=== PATIENT | male | born 1940 | race Caucasian/White ===

== ENCOUNTER 2019-02-25 13:27 | Emergency (ER) | payer OTHER, BC ==
[~2019-02-25] VITALS: Ht 185.4 cm; Wt 136.1 kg
[2019-02-25 13:35] VITALS: Ht 185.4 cm; Wt 136.1 kg
[2019-02-25 16:27] VITALS: BP 119/76
== END 2019-02-25 16:27 | disposition home or self-care (01) ==
LOC: ED 13:27
DX: S82.142A Displaced bicondylar fracture of left tibia, initial encounter for closed fracture (principal); S82.492A Other fracture of shaft of left fibula, initial encounter for closed fracture; S01.01XA Laceration without foreign body of scalp, initial encounter; I10 Essential (primary) hypertension; E11.9 Type 2 diabetes mellitus without complications; E78.00 Pure hypercholesterolemia, unspecified; R51 Headache; W01.0XXA Fall on same level from slipping, tripping and stumbling without subsequent striking against object, initial encounter; Y93.89 Activity, other specified; Y92.89 Other specified places as the place of occurrence of the external cause; Y99.8 Other external cause status
CPT/HCPCS: J2001; Q0092

== ENCOUNTER 2019-03-26 13:07 | Inpatient (IN) | payer OTHER, BC ==
[~2019-03-26] VITALS: Ht 185.4 cm; Wt 128.4 kg
[2019-03-26 13:10] VITALS: Ht 185.4 cm; Wt 128.4 kg
--- NOTE | 2019-03-26 13:35 | NUR ---
PT ARRIVED DIAPERED, BLACK MATERIAL SEEN IN FRONT OF DIAPER BY PENIS. PT W/ EXCORIATION TO GROIN FOLDS. PT'S PENIS W/ WHITE CHEESY MATERIAL. PT ST CATH BY LORETTA ANDREWS W/ IMMEDIATE RETURN TEA-COLORED URINE WHICH PROGRESSED TO A GRAINY BROWN, 1500 CC OF URINE IMMEDIATELY RETURNED. SPECIMEN TO LAB.
--- NOTE | 2019-03-26 13:40 | NUR ---
PT'S SPEECH IS SLURRED BUT PT IS ORIENTED. MSE BY DR. VASQUEZ. PER MD, PT'S MOUTH IS EXTREMELY DRY & MAY BE CONTRIBUTING TOWARDS THE SLURRED SPEECH. PER MEDIC, TRELLIS STAFF REPORT POOR PO INTAKE BY PT SINCE HIS SURGERY. PT ARRIVED W/ DRESSINGS DOWN LT LEG & AROUND LT FOOT BUT WITH NO SPLINT OR KNEE IMMOBILIZER IN PLACE.
--- NOTE | 2019-03-26 13:49 | NUR ---
PATIENT BIBA [facility] FOR GENERALIZED WEAKNESS. WHEN PATIENT ARRIVED TO BEDSIDE, PATIENT WAS LETHARGIC. WAS ABLE TO AROUSE PATIENT WHEN SPOKEN TO WITH A LOUDER VOICE. PATIENT ABLE TO SPEAK BUT SPEECH IS SLURRED. WAS ABLE TO VOLUNTARILY RAISE BOTH ARMS VOLUNTARILY, WITH EQUAL AND STRONG MILL ROLL REWINDER. RIGHT TOE AND LEFT BOTTOM OF FOOT HAS SOME OPEN SKIN TEARS IN DIFFERENT STAGES OF HEALING. PICTURES TAKEN. PATIENT PLACED ON O2 NASAL CANULA. HAS BEEN O2 SAT IN UPPER 80S AND THEN WOULD COME BACK TO MID 90S. HAS BEEN ABLE TO FOLLOW COMMANDS. DR. VASQUEZ AT BEDSIDE PERFORMED MSE
--- NOTE | 2019-03-26 13:58 | NUR ---
PATIENT RESTING AT BEDSIDE IN NAD
[2019-03-26 14:07] LABS: microscopic required? YES; urine erythrocyte 2+ (NEGATIVE)
[2019-03-26 14:08] LABS: BASOPHIL % 0.2 % (0-2); PLATELET COUNT 277 x10^3mcL (130-400); RED CELL DISTRIBUTION WIDTH 16.1 % (11.5-14.5)
--- NOTE | 2019-03-26 14:13 | NUR ---
XRAY AT BEDSIDE
[2019-03-26 14:18] LABS: AMPHETAMINE QUAL UR NONE DETECTED (See below)
--- NOTE | 2019-03-26 14:33 | NUR ---
PATIENT RESTING AT BEDSIDE IN NAD
[2019-03-26 14:41] LABS: ALKALINE PHOSPHATASE 82 U/L (46-116); ALT/SGPT 16 U/L (16-63); AST/SGOT 20 U/L (15-37); BILIRUBIN TOTAL 0.8 mg/dL (0.20-1.00); CALCIUM 8.3 mg/dL (8.5-10.1); CARBON DIOXIDE 24.7 mmol/L (21-32); CHLORIDE SERUM 103 mmol/L (98-107); GLUCOSE SERUM 74 mg/dL (74-106); HDL CHOLESTEROL 53 mg/dL (40-60); LIPASE 691 IU/L (73-393); MAGNESIUM 2.7 mg/dL (1.8-2.4); SODIUM SERUM 138 mmol/L (136-145); T4(THYROXINE) 6.1 ug/dL (4.7-13.3); TOTAL PROTEIN, SERUM 6.9 g/dL (6.4-8.2)
[2019-03-26 14:47] LABS: CHOLESTEROL 94 mg/dL (<200); CREATININE SERUM 4.5 mg/dL (0.7-1.3); POTASSIUM SERUM 5.6 mmol/L (3.5-5.1)
[2019-03-26] MEDS ORDERED: LIPI20 PO (14:52)
[2019-03-26] MEDS ORDERED: ACT30 (14:52)
[2019-03-26] MEDS ORDERED: NEU300 PO (14:52)
[2019-03-26] MEDS ORDERED: LOSARTAN POTASS50 M1 PO (14:54)
[2019-03-26] MEDS ORDERED: METFORMIN HYDR500 M1 PO (14:54)
[2019-03-26] MEDS ORDERED: RELION HUMUL100 U/M2 SQ (14:56)
[2019-03-26] MEDS ORDERED: HUMULIN N100 U/1 ML SC (14:56)
--- NOTE | 2019-03-26 15:54 | NUR ---
REPORT OFF TO JULIANA SALAMANCA
[2019-03-26 17:00] VITALS: BP 106/53
--- NOTE | 2019-03-26 17:25 | NUR ---
RECEIVED PT FROM ER, PT ADMIT FOR ACUTE RENAL FAILURE, PT IS A/O X4, VERBAL RESPONSIVE, KEWEENAW, BUT ABLE TO ANSWER ALL QUESTIONS. LUNG SOUND DIM ELEAZAR BASE, DENY ANY SOB, PT IS ON 3L/MIN O2 VIA NC. PO2 92%, PT IS ON TELE 12, A.FIB WITH PVC, DENY ANY CHEST PAIN OR DISCOMFORT, BOWEL SOUND PRESENT ALL 4 QUADRANTS, NO DISTNETION, NO TENDER. PEDAL PULSE PRESENT BOTH FEET, +1 EDEMA LLE. THERE IS SURGICAL INCISION AT LEFT LOWER LEG AND KNEE. SUTURE ARE INTACT, NO BLEEDING, PICTURE IS TAKEND. COVERED WITH DRY DRESSING, THERE IS A BROWN DISCOLORATION TISSUE AT LEFT PLANTAR. ALSO THERE IS BLACK DISCOLRATION TISSUE AT RIGHT BIG TOE. IV AT RIGHT AND LEFT HAND, NO LEAKING, NO INFILRATION. ALL ADLS ASSIST, ALL NEED MET, CALL LIGHT IN REACH, WILL CONTINUE TO MONITOR. ENDORSE ALL INFORMATION TO PRIMARY RN, JULIANA OSBORNE.
--- NOTE | 2019-03-26 18:19 | NUR ---
AAO TO PERSON AND PLACE. TELE # 12 A FIB. NO C/O PAIN. NO SOB. O2 SAT ON 3L NC 92%. IV SITE RIGHT HAND PATENT, CDI. PATIENT'S FAMILY MEMBER AT BEDSIDE, SUPPORTIVE AND CARING. GALLARDO CATH DRAINED 200 ML TEA COLORED URINE. DRESSING TO LEFT LATERAL LEG CDI. SUTURES TO RECENT SURGICAL INCISION ON LEFT LATERAL KNEE AREA APPROXIMATING WOUND, WOUND CDI, NO ERYTHEMA OR DRAINAGE, IT IS HEALING WELL.
--- NOTE | 2019-03-26 19:33 | NUR ---
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
[2019-03-26 20:36] VITALS: BP 125/44
--- NOTE | 2019-03-26 21:13 | NUR ---
DR IRBY MADE AWARE PATIENT IS NEW AFIB,NO MEDS YET,ALSO IS A POST OP SURGERY OF L KNEE,WILL FIND OUT EXACT DATE.
--- NOTE | 2019-03-27 04:55 | NUR ---
IV DINORAH R HAND INTACT,L HAND IV SITE SWOLLEN.ARMBAND WILL APPLY A NEW ONE.
[2019-03-27 05:26] VITALS: BP 132/48
--- NOTE | 2019-03-27 06:09 | NUR ---
PATIENT RESTING COMFORTABLY. STILL AT BEDSIDE,STAYED FOR TONIGHT.L LEG SURGERY INCISION/SUTURE L KNEE.I AND O MEASURED.WILL ENDORSE TO NEXT SHIFT.
[2019-03-27 06:47] LABS: BASOPHIL % 0.3 % (0-2); PLATELET COUNT 229 x10^3mcL (130-400)
[2019-03-27 07:04] LABS: RED CELL DISTRIBUTION WIDTH 16.6 % (11.5-14.5)
[2019-03-27 07:08] LABS: CALCIUM 7.9 mg/dL (8.5-10.1); CARBON DIOXIDE 16.3 mmol/L (21-32); CHLORIDE SERUM 106 mmol/L (98-107); CREATININE SERUM 3.9 mg/dL (0.7-1.3); GLUCOSE SERUM 99 mg/dL (74-106); POTASSIUM SERUM 5.5 mmol/L (3.5-5.1); SODIUM SERUM 139 mmol/L (136-145)
--- NOTE | 2019-03-27 09:10 | NUR ---
REPOSITIONED AND KEPT PATIENT COMFORTABLE. PATIENT STATED HAS NO APPETITE THIS MORNING. ROCEPHIN IV INFUSING AT THIS TIME, NO ADVERSE REACTION NOTED. AM SCHEDULED MEDS GIVEN. PATIENT'S SPOUSE AT BEDSIDE VERY SUPPORTIVE. ULTRASOUND KIDNEY ONGOIND AT BEDSIDE AT THIS TIME.
[2019-03-27 09:12] VITALS: BP 113/78
--- NOTE | 2019-03-27 11:00 | NUR ---
PATIENT PULLED OUT IV FROM RIGHT HAND, NO ERYTHEMA OR SWELLING TO SITE, DRSG APPLIED. NEW IV CATHETER#22 INSERTED TO RFA WITH GOOD BLD RETURNED AND FLUSHED WELL. IVF NS AT 100ML/R CONTINUED. REORIENTED TO PLACE, TIME AND SITUATION. PATIENT NOTED IN AND OUT OF CONFUSION.
[2019-03-27 12:02] VITALS: BP 114/46
--- NOTE | 2019-03-27 17:07 | NUR ---
CONFUSED AND TRYING TO GET OUT OF BED. REORIENTED TO PATIENT. PATIENT BECAME AGITATED. PATIENT'S SPOUSE AT BEDSIDE ASKED FOR MEDICINE TO CALM PATIENT DOWN. AIRCRAFT DELIVERY CHECKER KORY NOTIFIED. ATIVAN 1MG IVP GIVEN PER AIRCRAFT DELIVERY CHECKER'S ORDER.
[2019-03-27 17:15] VITALS: BP 138/55
--- NOTE | 2019-03-27 18:59 | NUR ---
SEEN BY DOCTOR KRAMER.
--- NOTE | 2019-03-27 19:30 | NUR ---
RECEIVED PT FROM DAY SHIFT RN. PT RESTING AROUSABLE TO TACTILE STIMULI. BREATHING EVEN AND UNLABORED ON NC 3L/MIN. TELE #12 AFIB. NO SIGNS OF DISTRESS. IV RIGHT HAND PATENT, INFUSING WELL WITH NO SIGNS OF INFILTRATION NOTED. BLE EDEMA NOTED. LLE COVERED WITH DRESSING, CDI. F/C IN PLACE DARK GERMAN URINE. AT BEDSIDE. CALL BUTTON WITHIN REACH. SAFETY PRECAUTIONS IN PLACE. WILL CONTINUE TO MONITOR.
--- NOTE | 2019-03-27 19:31 | NUR ---
RECEIVED PT FROM DAY SHIFT RN. PT RESTING AROUSABLE TO TACTILE STIMULI. BREATHING EVEN AND UNLABORED ON NC 3L/MIN. TELE #12 AFIB. NO SIGNS OF DISTRESS. IV RIGHT HAND PATENT, INFUSING WELL WITH NO SIGNS OF INFILTRATION NOTED. BLE EDEMA NOTED. LLE COVERED WITH DRESSING, CDI. F/C IN PLACE DARK RED URINE. AT BEDSIDE. CALL BUTTON WITHIN REACH. SAFETY PRECAUTIONS IN PLACE. WILL CONTINUE TO MONITOR.
[2019-03-27 20:30] VITALS: BP 129/40
--- NOTE | 2019-03-27 20:30 | NUR ---
PT HR GOES LOW 38 THEN TO HR 71 ON AND OFF. VS STABLE. DR IRBY MADE AWARE AND AT BEDSIDE TO ASSESS PT.
[2019-03-27 22:02] LABS: CARBON DIOXIDE 21.3 mmol/L (21-32); CHLORIDE SERUM 109 mmol/L (98-107); CREATININE SERUM 3.3 mg/dL (0.7-1.3); GLUCOSE SERUM 147 mg/dL (74-106); SODIUM SERUM 140 mmol/L (136-145)
[2019-03-27 22:04] LABS: POTASSIUM SERUM 5.9 mmol/L (3.5-5.1)
--- NOTE | 2019-03-27 22:10 | NUR ---
DR SUREKHA WINN FOR LAB RESULTS OF K 5.9 AND BUN 109.
--- NOTE | 2019-03-28 00:44 | NUR ---
PT RESTING. NC 3L/MIN NO SOB NOTED. IV PATENT, INFUSING WELL. PT HR 92. NO SIGNS OF DISTRESS NOTED. F/C CONTINUE TO DRAIN DARK RED COLOR URINE. SAFETY PRECAUTIONS IN PLACE. WILL MONITOR.
--- NOTE | 2019-03-28 04:03 | NUR ---
ROUNDS MADE. PT RESTING. BREATHING EVEN AND UNLABORED WITH NO SIGNS OF DISTRESS. CALL BUTTON WITHIN REACH. SAFETY PRECAUTIONS IN PLACE. AT BEDSIDE. WILL CONTINUE TO MONITOR.
[2019-03-28 05:02] VITALS: BP 136/60
--- NOTE | 2019-03-28 05:13 | NUR ---
PT SLEPT MOST OF THE NIGHT. PT NC 2L/MIN 95% NO SOB NOTED. PT HR ABOVE 80. NO SIGNS OF DISTRESS NOTED. PT IS MORE AWAKE THIS AM, ALERT AND ORIENTED TO SELF. SLOW/SLURRED SPEECH. F/C CONT. TO DRAIN DARK RED COLOR URINE. IV PATENT, INFUSING WELL. NO SIGNS OF DISTRESS NOTED. CALL BUTTON WITHIN REACH. SAFETY PRECAUTIONS IN PLACE. AT BEDSIDE. WILL CONTINUE TO MONITOR AND ENDORSE CARE TO DAY SHIFT RN.
[2019-03-28 06:27] VITALS: BP 136/60
--- NOTE | 2019-03-28 07:23 | NUR ---
PT IN NO SIGNS OF DISTRESS NOTED. ENDORSED CARE TO DAY SHIFT RN, ALL QUESTIONS ADDRESSED.
--- NOTE | 2019-03-28 07:30 | NUR ---
RECEIVED PT IN NO ACUTE DISTRESS. SLEEPING BUT AROUSABLE. BREATHING EVEN AND UNLABORED ON 2L NC. HOB ELEVATED. IVF INFUSING TO R HAND, NO REDNESS OR SWELLING NOTED. 2 ISLAND DRESSINGS TO LLE, C/D/I. PURPLE-GREEN DISCOLORATION TO LLE, INDUSTRIAL ACCOUNTANT. SCABS NOTED THROUGHOUT BLE, INDUSTRIAL ACCOUNTANT. LEFT 4TH TOE AMPUTATED. GALLARDO CATHETER DRAINING TEA COLORED URINE WITH BLOOD. FALL PRECAUTIONS IN PLACE. BED ALARM ON. BED IN LOW POSITION, CALL LIGHT WITHIN REACH. WILL CONTINUE TO MONITOR.
--- NOTE | 2019-03-28 08:05 | NUR ---
PT HAD SMALL SOFT BM, CLEANED AND REPOSITIONED FOR COMFORT. ERYTHEMA TO PERINEAL AREA, Z-GUARD APPLIED. HOB ELEVATED. CALL LIGHT WITHIN REACH. WILL CONTINUE TO MONITOR.
[2019-03-28 08:22] VITALS: BP 146/57
--- NOTE | 2019-03-28 11:15 | NUR ---
PT NOTED WITH NON-BLANCHABLE ERYTHEMA TO SACRUM. Z-GUARD, OPTIFOAM APPLIED. PT PLACED ON LOW AIR LOSS MATTRESS. PICTURES TAKEN AND PLACED IN ALEXIS MONK NP AWARE. WILL CONTINUE TO MONITOR.
[2019-03-28 11:55] VITALS: BP 136/69
--- NOTE | 2019-03-28 15:01 | NUR ---
WOUND CARE EVALUATION NOTE: REASON FOR EVALUATION: PRESSURE ULCER WOUND SKIN ASSESSMENT DONE WITH PRIMARY RN ON THIS 78 Y/O MALE WITH CHANGE OF SKIN CONDITION. HX OF LEFT TIBIA FX WITH ORIF. F/C IN PATENT WITH MODERATE AMOUNT OF YELLOW URINE OUTPUT. SKIN WARM AND DRY, BLE NO HAIR GROWTH. DORSAL PEDAL PULSES PRESENT AND NORMAL. PLAN OF CARE DISCUSSED WITH PRIMARY RN. 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 -LEFT 1ST METATARSAL PLANTAR AREA DIABETIC ULCER 3X3CM DEPTH UTD, DRY STABLE BROWN ESCHAR -RIGHT HALLUX AREA DIABETIC ULCER 2X2CM DEPTH UTD, DRY STABLE BLACK ESCHAR RECOMMENDATIONS: -LEFT LEG SURGICAL WOUND KEEP AREA DRY AND CLEAN, COVER WITH DRY DRESSING QD -PAINT LEFT 1ST METATARSAL PLANTAR AREA AND RIGHT HALLUX AREA WITH BETADINE SOLUTION BID AND LEAVE IT OPEN TO AIR -CLEANSE SACRALCOCCYX EXTENDED TO LEFT INNER BUTTOCK WITH SOAP AND WATER, PAT DRY, COVER WITH OPTIFOAM DRESSING QD AND PRN IF SOILING -HEEL PROTECTORS BILATERAL HEELS -TURN AND REPOSITION PATIENT Q 2H -ASSESS AND MONITOR SKIN CONDITION DURING POSITION CHANGE -OFFLOAD BILATERAL HEELS BY PLACING PILLOWS UNDER CALVES AT ALL TIMES, UNLESS OTHERWISE CONTRAINDICATED -PRESSURE REDISTRIBUTION SURFACE THERAPY -KEEP SKIN CLEAN AND DRY AT ALL TIMES ALL ABOVE RECOMMENDATIONS DISCUSSED WITH PRIMARY RN WILL FOLLOW UP Q7-10 DAYS, PLEASE CONTACT WOUND CARE NURSE FOR ANY QUESTIONS AND CHANGE OF SKIN CONDITION
[2019-03-28 15:52] LABS: CALCIUM 8.5 mg/dL (8.5-10.1); CARBON DIOXIDE 18.9 mmol/L (21-32); CHLORIDE SERUM 108 mmol/L (98-107); CREATININE SERUM 2.6 mg/dL (0.7-1.3); GLUCOSE SERUM 197 mg/dL (74-106); POTASSIUM SERUM 5.3 mmol/L (3.5-5.1); SODIUM SERUM 141 mmol/L (136-145)
--- NOTE | 2019-03-28 16:33 | NUR ---
PHYSICAL THERAPY DAILY NOTES CO-SIGN All documentation done by the Milking System Installer for 03/28/19 has been reviewed. I agree with the documentation. Reviewed/Co-Signed by: Stefania Kimble PT Documentation Done by:DINH THOMPSON PTA
[2019-03-28 17:10] VITALS: BP 122/51
--- NOTE | 2019-03-28 17:44 | NUR ---
PT BEING ASSISTED WITH DINNER BY FAMILY MEMBERS. NO ACUTE DISTRESS. HOB ELEVATED. IVF INFUSING, NO REDNESS OR SWELLING TO IV SITE. CALL LIGHT WITHIN REACH. WILL CONTINUE TO MONITOR.
[2019-03-28 20:35] VITALS: BP 146/78
--- NOTE | 2019-03-28 23:11 | NUR ---
AT 1930 RECEIVED PT IN BED AAOX1 SPEECH SLURRED , LUNG SOUNDS DIMINISHED ON RA SAT 97% NO RESP DISTRESS NOTED, PT'S VERY CONFUSED TRYING TO GET OUT OF BED , BED ALARM ON FOR SAFTY , FAMILY AT THE BEDSIDE AT ALL THE TIME , SKIN WARM TO TOUCH , LLE S/P ORIF OF THE TIBIA WITH ISLAND DRESSING C/D/I , LEFT GREAT TOE WITH DRY SCABS RIGHT HALLUX DISCOLORATION , ERRYTHEMA TO PERINEAL AREA NOTED, WITH Z-GUARD TREATMENT PT ON AIR MATTRESS , GALLARDO TO GRAVITY DRAINING WELL , , ON TELE NUMBER 12 THAT SHOWS NSR/PAC'S/PV'S . PIV INTACT INFUSING WELL . WILL CON'T TO MONITOR AND TURN PT Q2HRS.
--- NOTE | 2019-03-29 03:04 | NUR ---
PT'S AWAKE VERY RESTLESS ,NOTED PT'S SPEECH IS CLEAR THAN IT WAS IN THE BEGGINING OF THE SHIFT , MEDICATED PT WITH TYLENOL FOR LEFT LEG PAIN , BED ALARM ON FOR SAFETY , PIV INTACT INFUSING WELL, TELE NSR WITH PCV'S .
--- NOTE | 2019-03-29 04:38 | NUR ---
I HAVE REVIEWED THE DATA COLLECTION BY SUPERVISOR LAST MODEL DEPARTMENT (NAME):DARÍO GUTIÉRREZ ENTERED ON (DATE/TIME): I CONCUR WITH THE DATA AND ANY EXCEPTIONS OR COMMENTS ARE LISTED BELOW:
[2019-03-29 05:00] VITALS: BP 138/46
--- NOTE | 2019-03-29 06:22 | NUR ---
PT'S AWAKE REMAINED CONFUSED , SPEECH CLEAR , AT THE BEDSIDE FOR SAFETY , DRESSING TO LEFT LEG C/D/I , OPTIFOAM TO BUTTOCKS C/D/I , GALLARDO TO GRAVITY DRAINING WELL , PIV INTACT INFUSING WELL , TELE NSR WITH PAC'S/PVC'S .
[2019-03-29 07:01] LABS: BASOPHIL % 0.2 % (0-2); PLATELET COUNT 205 x10^3mcL (130-400)
[2019-03-29 07:14] LABS: CALCIUM 8.5 mg/dL (8.5-10.1); CARBON DIOXIDE 17.2 mmol/L (21-32); CHLORIDE SERUM 113 mmol/L (98-107); CREATININE SERUM 2.4 mg/dL (0.7-1.3); GLUCOSE SERUM 181 mg/dL (74-106); MAGNESIUM 2.3 mg/dL (1.8-2.4); POTASSIUM SERUM 5.5 mmol/L (3.5-5.1); SODIUM SERUM 144 mmol/L (136-145)
--- NOTE | 2019-03-29 07:28 | NUR ---
PATIENT A/OX1, SPEECH CLEAR, EQUAL CAR REPAIRER STRENGTH, BIG SANDY NOTED, ABLE TO MAKE MOST NEEDS KNOWN AND FOLLOW SIMPLE COMMANDS. AT BEDSIDE. TELE [address], HR 49-52. DENIES CP. PERIPHERAL PULSES PALPABLE, EDEMA NOTED TO BLE'S NONPITTING. LUNGS DIM TO BASES, BREATHING E/U AT THIS TIME, NO RESP DISTRESS ON RA. BOWEL SOUNDS ACTIVE, DENIES N/V. GALLARDO IN PLACE DRAINING GERMAN URINE TO GRAVITY. X2 ISLAND DRESSINGS NOTED TO LLE CDI S/P ORIF. LT GREAT TOE AND RT HALLUX WITH SCABS FUEL RETROFITTING TECHNICIAN, NO DRAINAGE. LT 4TH DIGIT TOE AMPUTATED. REDNESS NOTED TO PERIANAL AREA. AIR MATTRESS IN PLACE. DENEIS PAIN AT THIS TIME, BED ALARM ON, BED ON LOWEST POSITION. IV SITE TO WNL. CALL LIGHT WITHIN REACH. WILL CONT TO MONITOR.
[2019-03-29 08:11] VITALS: BP 172/49
--- NOTE | 2019-03-29 08:45 | NUR ---
BED LINENS CHANGED AND PATIENT REPOSITIONED. PT ATTEMPTED TO PROVIDE PHYSICAL THERAPY, PATIENT AGITATED AND REFUSING PT AT THIS TIME. PATIENT STATES "I NEED TO GET OUT OF HERE", PATIENT ALERT/ORIENTED TO SELF. SIDE RAILS UP X3, BED IN LOWEST POSITION, BED ALARM ON. WILL CONT TO MONITOR.
--- NOTE | 2019-03-29 09:18 | NUR ---
AM DUE MEDICATIONS GIVEN, PATIENT TOLERATED WELL AND COOPERATIVE BUT STILL WANTS TO GET OUT OF BED AND STATES "I FEEL REALLY WEAK". REORIENTATION PROVIDED AND INFORMED THE NEED FOR PT. GESTURES UNDERSTANDING.
[2019-03-29 09:59] VITALS: BP 146/39
--- NOTE | 2019-03-29 11:28 | NUR ---
PATIENT DEMANDING TO CALL , BEDSIDE TELEPHONE PROVIDED. PATIENT UNABLE TO RECALL 'S PHONE NUMBER AND GETTING AGITATED "IM JUST GONNA CALL 911", PHONE NUMBER OF PROVIDED AND DIALED FOR PATIENT. NO ANSWER AND PATIENT LEFT VOICE MESSAGE. WILL CONT TO MONITOR, CALM AT THIS TIME.
[2019-03-29 12:43] VITALS: BP 161/50
--- NOTE | 2019-03-29 13:45 | NUR ---
PATIENT REQUESTED FOR ASSISTANCE, FOUND IN BED WITH BM ACCIDENT/LEAK. PATIENT CLEANSED AND LINENS/GOWN CHANGED. SMALL LOOSE STOOL. 10 MINUTES LATER PATIENT AMBULATED TO RESTROOM TO HAVE ANOTHER BM. SMALL AMOUNT LOOSE/WATERY STOOL. DENIES DIARRHEA OR ABD DISCOMFORT. ABDOMEN SOFT AND NON-TENDER AT THIS TIME. NGT RESUMED TO LOW-CONT SUCTIONING. WILL CONT TO MONITOR.
--- NOTE | 2019-03-29 14:15 | NUR ---
PHYSICAL THERAPISTS AT BEDSIDE, PATIENT STOOD UP WITH MAX ASSIST. BLANCHABLE REDNESS NOTED TO BUTTOCKS, OPTIFOAM PLACED. AT BEDSIDE. PATIENT TOLERATED PT FAIR. NO SIGN OF ACUTE DISTRESS. WILL CONT TO MONITOR.
--- NOTE | 2019-03-29 14:44 | NUR ---
Initial Nutrition Assessment: 244T/A MEETA STEPHENS J IA HR Dx: Acute renal failure PMHx: DM, high cholesterol PSHx: recent Tibial plateau ORIF Labs: BG 181H, K 5.5H, BUN 83H, CREAT 2.4H, A1C 7.0H Meds: D 50%, humulin, Pepcid, zofran Diet: Cardiac PO Intake: (03/29) breakfast 25%, (03/28) breakfast 50%, lunch 60%, dinner 30% Ht: 185.42 cm (73") Wt: 126 kg (277#) BMI: 36.7 kg/m2 Bed scale: 126.3 kg IBW: 184# (84 kg) %IBW: 150 UBW: unable to access Age: 78/M Food Allergies: NKFA Skin: LLE S/P ORIF w/ 2 Island dressing, great L toe and R hallux scabs Drew: 15 Edema: BLE GI: Last BM: 03/28 Per H&P, Pt is a 78-year old male who was seen and examined in the ER. Patient is a assisted resident. As per charge nurse at the SNF patient was noted to be more altered than usual and noticed that his systolic BP was in the 90's, due to this reason patient was send to the ER to be evaluated. RDN Visit (03/29): FNS received consult for wound care, poor appetite. Per woundcare RN note (03/28) patient has L leg surgical wound, pressure ulcer stage 1 to sacralcoccyx, metatarsal area DM ulcer and R hallux DM ulcer. Patient seemed very confused. Later on patient's interacted with me and said that's he was concerned about patient's poor PO. Recommendation of adding Carlos Alberto and Ensure high protein and the rationale behind it was explained to her and all the questions were answered. Discussed recommendations with TERMITE TREATER Felipe. Problem with: N/V/D/C: no Problems with: Chewing/Swallowing: none Current appetite: good Recent wt change: none %wt change: N/A Vitamin/Supplement use: none Special diet at home: regular Physical activity: none Nutrition education given: [facility] handout on DM CKD nutrition therapy was provided. Patient appeared confused. Food-drug interactions: none Education given: n/a Estimated Nutritional Needs Based on ideal body weight 84 kg Energy: 3600-1948 kcal/d (25-30 kcal/kg) Protein: 100-117 g/d (1.2-1.4 g/kg) - wounds Fluid: per doctor Nutrition Diagnosis 1. Increased nutrient needs related to increased metabolic demand as evidenced by wounds. 2. Inadequate oral intake related to poor appetite per as evidenced by documented PO of 25% Intervention 1. Recommend Cardiac CCHO diet. 2. Recommend Ensure high protein BID for wound healing. 3. Recommend Carlos Alberto BID for wound healing. Monitor/Evaluate Goal: PO intake at least 75% of estimated needs Monitor: PO intake, Labs, GI function F/U in 2-3 days as high risk 03/31-10
--- NOTE | 2019-03-29 14:45 | NUR ---
1. Recommend Cardiac CCHO diet. 2. Recommend Ensure high protein BID for wound healing. 3. Recommend Carlos Alberto BID for wound healing.
[2019-03-29 17:30] VITALS: BP 114/92
--- NOTE | 2019-03-29 18:15 | NUR ---
DRESSINGS CHANGED AND WOUND CARE PROVIDED TO LLE SURGICAL SITE AND BILAT FEET SCABS PER WC ORDERS. PATIENT TOLERATED WELL. GALLARDO IN PLACE, PERICARE PROVIDED. GERMAN URINE 1700ML OUT. PATIENT ATE VERY LITTLE OF DINNER MEAL, REFUSING TO EAT MORE. NO OTHER SIGNFICATN CHANGE IN CONDITION. AIR MATTRESS IN PLACE, BLE ELEVATED. BED ALARM ON, BED AT LOWEST POSITION. CALL LIGHT WITHIN REACH. WILL CONT TO MONITOR AND ENDORSE TO NOC NURSE.
--- NOTE | 2019-03-29 19:30 | NUR ---
RECIEVED PATIENT AT START OF SHIFT RESTING, AROUSABLE TO VERBAL STIMULUS. PATIENT IS CONFUSED, ONLY ORIENTED TO SELF. REPORTS THAT THE PATIENT IS HALLUCINATING BUT COULD NOT PROVIDE A DESCRIPTION OF HIS HALLUCINATIONS. PATIENT HAS HEARING AIDS IN PLACE. ON TELE 12, NSR WITH PVC'S. DENEIS PAIN. BLE NONPITTING EDEMA. NO SOB ON RA, LUNGS DIMINISHED BILATERALLY. BS ACTIVE. PATIENT HAD SOFT BROWN BM AND WAS CHANGED. NEW OPTIFOAM APPLIED TO SACRUM, BLANCHABLE REDNESS NOTED. GALLAROD DRAINING CLEAR YELLOW URINE. BLE ELEVATED ON PILLOW. AIR MATTRESS IN PLACE. 2 ISLAND DRESSINGS NOTED TO LLPortillo, FRANK. BLE SCABS NOTED MILLY. IV TO RH INFUSING WITHOUT ERYTHEMA OR INFILTRATION. BED LOCKED AND IN LOWEST POSIITON. CALL LIGHT AND BEDSDIE TABLE WITHIN REACH. BED ALARM ON.
--- NOTE | 2019-03-29 21:00 | NUR ---
PATIENT REPOSITIONED ON RIGHT SIDE AT THIS TIME. LEGS ELEVATED ON PILLOW AND HEELS FLOATED.
[2019-03-29 21:06] VITALS: BP 143/53
--- NOTE | 2019-03-29 23:00 | NUR ---
PATIENT REPOSIITONED ON LEFT SIDE AT THIS TIME, PILLOW UNDER LEGS WITH HEELS FLOATED.
--- NOTE | 2019-03-29 23:37 | NUR ---
PATIENT GIVEN BENADRYL PER EMAR FOR RESTLESSNESS AND TROUBLE SLEEPING BECAUSE ATIVAN IS ON HOLD.
--- NOTE | 2019-03-29 23:48 | NUR ---
ORDER FOR SCDS OBTAINED FOR PATIENT FOR DVT PROPHYLAXIS.
--- NOTE | 2019-03-30 01:00 | NUR ---
PATIENT REPOSIITONED SUPINE. LEGS ELEVATED. HEELS FLOATED.
--- NOTE | 2019-03-30 01:30 | NUR ---
PATIENT CONTINUES TO BE RESTLESS AND IS TRYING TO GET UP OUT OF BED. ORDER FOR TRAZADOEN OBTAINED PER DR. IRBY AND GIVEN PER EMAR AT THIS TIME.
--- NOTE | 2019-03-30 02:19 | NUR ---
PATIENT HAD ANOTHER SOFT BROWN BM. PATIENT CLEANED, Z GUARD APPLED AND OPTIFAM REPLACED. REPOSITIONED ON RIGHT SIDE. LEGS ELEVATED AND HEELS FLOATED.
--- NOTE | 2019-03-30 03:37 | NUR ---
PATIENT IS STILL RESTLESS AND KEEPS REMOVING HIS TELE AND GOWN DESPITE COSTANT REINFORCEMENT OF EDUCATION AND REORIENTATION.
--- NOTE | 2019-03-30 05:00 | NUR ---
PATIENT REPOSIITONED ON LEFT SIDE WITH PILLOWS. LEGS ELEVATED AND HEELS FLOATED. GALLARDO CATHETER CARE PROVIDED.
[2019-03-30 05:26] VITALS: BP 155/59
--- NOTE | 2019-03-30 06:15 | NUR ---
NO FURTHER SIGNIFICANT EVENTS THIS SHIFT. PATIENT DID NOT SLEEP TONIGHT. REPORTS HE HASNT SLEPT IN 2 DAYS. LACK OF SLEEP MAY BE CONTRIBUTING TO HIS CONFUSION. BENADRYL AND TRAZADONE HAD NO MEASURABLE EFFECT ON HIM HE DID NOT SLEEP AT ALL. IV IS INFUSING WITHOUT ERYTHEMA OR INFILTRATION. GALLARDO DRAINED 1,000 MLS OF YELLOW URINE THIS SHIFT. BED LOCKED AND IN LOWEST POSITION. CALL LIGHT AND BEDSDIE TABLE WITHIN REACH.
[2019-03-30 06:38] LABS: BASOPHIL % 0.4 % (0-2); PLATELET COUNT 222 x10^3mcL (130-400)
[2019-03-30 06:40] LABS: CALCIUM 8.8 mg/dL (8.5-10.1); CARBON DIOXIDE 18.2 mmol/L (21-32); CHLORIDE SERUM 115 mmol/L (98-107); CREATININE SERUM 1.8 mg/dL (0.7-1.3); GLUCOSE SERUM 140 mg/dL (74-106); POTASSIUM SERUM 5.1 mmol/L (3.5-5.1); RED CELL DISTRIBUTION WIDTH 16.7 % (11.5-14.5); SODIUM SERUM 147 mmol/L (136-145)
[2019-03-30 08:11] VITALS: BP 139/62
--- NOTE | 2019-03-30 09:15 | NUR ---
PATIENT ATTEMPTING TO GET OUT OF BED, "I JUST NEED TO GET OUT OF HERE AND CALL MY ". PATIENT USING THE TELE BOX A PHONE AND CALLING THE "METAL ENGINEERING PROCESS WORKER". REORIENTATION PROVIDED. PATIENT HAD SMALL BM, CHANGED AND REPOSITIONED. ATTEMPTED TO CALL FOR PATIENT, NO ANSWER. PATIENT DOES NOT WANT TO LEAVE A VOICE MESSAGE. "JUST LEAVE ME ALONE". BLE ELEATED ON PILLOW, BED IN LOWEST POSITION, BED ALARM ON. CALL LIGHT WITHIN REACH. WILL CONT TO MONITOR.
[2019-03-30 12:06] VITALS: BP 168/80
--- NOTE | 2019-03-30 12:25 | NUR ---
PATIENT HAD BM IN BED, LINENS CHANGED AND NEW OPTIFOAM PLACED FOR NONBLANCHABLE REDNESS TO SACRAL REGION. PATIENT REPOSITIONED TO COMFORT. HOB ELEVATED TO EAT LUNCH MEAL. FAMILY AT BEDSIDE. WILL CONT TO MONITOR.
--- NOTE | 2019-03-30 15:00 | NUR ---
PATIENT HAD ANOTHER SMALL BM, SOFT/LOOSE STOOL. CLEANSED AND CHANGED, OPTIFOAM REPLACED OVER NONBLANCHABLE REDNESS TO SACRUM. PATIENT REPOSITIONED AND BLE ELEVATED ON PILLOW. WILL CONT TO MONITOR.
--- NOTE | 2019-03-30 16:22 | NUR ---
PHYSICAL THERAPY DAILY NOTES CO-SIGN All documentation done by the Grape Picker for 03/30/19 has been reviewed. I agree with the documentation. Reviewed/Co-Signed by: Stefania Kimble PT Documentation Done by:DINH THOMPSON PTA
--- NOTE | 2019-03-30 17:15 | NUR ---
WOUND CARE PROVIDED TO LLE AND BILAT FEET SCABS PER WOUND CARE ORDERS. ISLAND DRESSINGS REPLACED TO LLE. SCABS MILLY W/ BETADINE. BLE ELEVATED ON PILLOW, SCD IN PLACE TO RLE. PATIENT REPOSITIONED TO COMFORT, DINNER TRAY SET UP. FAMILY AT BEDSIDE. PATIENT AGITATED AT TIMES AND CONFUSED THROUGHOUT SHIFT. IV SITE DRESSING CHANGED, IV INTACT AND SITE WNL. WILL CONT TO MONITOR AND ENDORSE TO NOC NURSE.
[2019-03-30 17:23] VITALS: BP 161/56
--- NOTE | 2019-03-30 19:19 | NUR ---
AT BEDSIDE, REQUESTING FOR AMBIEN FOR PATIENT TO HELP HIM REST, PER GLASSWARE FINISHER WAS TO PUT AN ORDER FOR AMBIEN TONIGHT. DR IRBY MADE AWARE, AMBIEN ORDER PLACED AND GIVEN. ENDORSED CARE TO [facility] NURSE.
--- NOTE | 2019-03-30 19:20 | NUR ---
RECIEVED PATIENT AT START OF SHIFT ONLY ORIENTED TO SELF. PATIENT IS VERY CONFUSED AND RESTLESS. DAYSNVFT NURSE FOUZIA GAVE THE PATIENT AMBIEN PER EMAR JUST BEFORE ENDORSING CARE TO ME, BECAUSE THE PATIENT HAS NOT SLEPT IN 2 DAYS. PATIENT ON TELE 12 PATIENT JUMPS FROM NSR WITH PAC'S TO OCCASIONAL AFIB AND BACK TO ORIGINAL RYHTHM. PATIENT DENIES PAIN. BREATHS ARE EVEN AND REGULAR. LUNGS DIMINISHED BILATERALLY. ABDOMEN IS SOFT AND OBESE. BS ACTIVE. GALLARDO DRAINING YELLOW URINE TO GRAVITY. PATIENT IS ON LEFT SIDE. AIR MATTRESS IN PLACE, LEGS ELEVATED AND HEELS FLOATED. LEFT LEG DRESSINGS ARE CDI. IV TO RH INFUSING WITHOUT ERYTHEMA OR INFILTRATION. AT BEDSIDE. CALL LIGHT AND BEDSIDE TABLE WITHIN REACH.
--- NOTE | 2019-03-30 22:04 | NUR ---
PATIENT CONTINUES TO BE AGITATED, RETSLESS, AND CONFUSED. PATIENT IS UNABLE TO SLEEP. PATIENTS FAMILY REQUESTED AN ADDITINAL MEDICATION ONTOP OF AMBIEN TO HELP THE PATIENT SLEEP. DR. IRBY ORDERED HALDOL 5 MG IM, WHICH WAS GIVEN AT THIS TIME PER EMAR.
--- NOTE | 2019-03-30 23:00 | NUR ---
PATIENT'S FAMILY MEMBER REQUESTED TO SPEAK WITH THE DOCTOR BECAUSE THE HALDOL HAS HAD NO EFFECT ON THE PATIENT. THE PATIENT HAS NOW BECOME EVEN MORE RESTLESS AND AGITATED. DR. IRBY AND DR. PICKETT AT BEDSIDE TO DISCUSS PLAN OF CARE WITH PATIENT. NEW ORDER FOR ABG OBTAINED TO ASSESS IF CO2 LEVEL IS CONTRIBUTING TO HIS CONFUSION.
--- NOTE | 2019-03-30 23:15 | NUR ---
ABG PH IS WITHIN NORMAL LIMITS. DR. IRBY AWARE. HE STATED TO HOLD OFF ON SEROQUEL ADMINISTRATION TO GIVE HALDOL MORE TIME TO TAKE EFFECT.
--- NOTE | 2019-03-30 23:45 | NUR ---
PATIENT HAS CALMED DOWN AND IS NOW ASLEEP. BREATHS EVEN AND REGULAR. FAMILY AT BEDSIDE. CALL LIGHT AND TABLE WITHIN REACH.
--- NOTE | 2019-03-31 00:54 | NUR ---
PATIENT IS AWAKE AGAIN AND IS RESTLESS. DR. IRBY GAVE THE OKAY TO ADMINISTER THE SEROQUEL AT THIS TIME PER EMAR. PATIENT REPOSIITONED SUPINE. ORAL CARE PROVIDED. CALL LIGHT AND BEDSIDE TABLE WITHIN REACH.
--- NOTE | 2019-03-31 06:15 | NUR ---
AT BEDSIDE IS REFUSING THE PATIENT'S VITALS AND BLOOD SUGAR CHECK THIS MORNING TO ALLOW THE PATIENT TO SLEEP LONGER, SINCE HE HASNT BEEN ABLE TO SLEEP IN 4 DAYS.
--- NOTE | 2019-03-31 06:26 | NUR ---
PATIENT HAS BEEN SLEEPING SINCE 0200, SNORING, BREATHS EVEN AND REGULAR. GALLARDO PUT OUT 750 MLS THIS SHIFT, GERMAN URINE. IV INFUSING TO RH WITHOUT ERYTHEMA OR INFILTRATION. TELE MONITOR 12 IS NSR WITH PVCS. BED LOCKED AND IN LOWEST POSIITON. CALL LIGHT AND BEDSIDE TABLE WITHIN REACH. AT BEDSIDE. WILL ENDORSE CARE TO DAYSHIFT NURSE.
[2019-03-31 06:35] LABS: BASOPHIL % 0.4 % (0-2); PLATELET COUNT 202 x10^3mcL (130-400)
[2019-03-31 07:10] LABS: RED CELL DISTRIBUTION WIDTH 16.3 % (11.5-14.5)
[2019-03-31 07:23] LABS: CALCIUM 8.5 mg/dL (8.5-10.1); CARBON DIOXIDE 19.2 mmol/L (21-32); CHLORIDE SERUM 118 mmol/L (98-107); CREATININE SERUM 1.5 mg/dL (0.7-1.3); GLUCOSE SERUM 154 mg/dL (74-106); MAGNESIUM 1.8 mg/dL (1.8-2.4); SODIUM SERUM 149 mmol/L (136-145)
--- NOTE | 2019-03-31 07:26 | NUR ---
RECEIVED PT RESTING IN BED WITH EYES CLOSED. NO ACUTE DISTRESS. RESP EVEN AND UNLABORED ON RA. IVF INFUSING, NO REDNESS OR SWELLING NOTED. HOB SLIGHTLY ELEVATED. GALLARDO CATHETER DRAINING GERMAN COLORED URINE TO GRAVITY. BLE ELEVATED WITH PILLOW. ON AIR MATTRESS, TURNED Q2H. FALL PRECAUTIONS IN PLACE. AT BEDSIDE. BED IN LOW POSITION, CALL LIGHT WITHIN REACH. WILL CONTINUE TO MONITOR.
[2019-03-31 08:12] VITALS: BP 161/56
--- NOTE | 2019-03-31 10:23 | NUR ---
CALL MADE FOR TELE NEURO ORDERED. AWAITING CALL BACK FROM SPECIALIST. CAMERA SET UP AT BEDSIDE.
--- NOTE | 2019-03-31 12:26 | NUR ---
Follow-up Nutrition Assessment: 244T/A MEETA STEPHENS, [place] FU HR Dx: Acute renal failure PMHx: DM, high cholesterol Labs: (03/31) NA 154H, BG 181H, BUN 37H, CREAT 1.5H, A1C 7.0H Meds: D 50%, humulin, Pepcid, zofran Diet: Cardiac (CCHO), Ensure high protein BID PO Intake: (03/30) breakfast, dinner 40%, lunch 25%, (03/29) breakfast, lunch 25% Weights: (03/26) 126 kg, (03/29) 126.2 kg, (03/31) 126.1 kg Skin: L leg surgical wound, pressure ulcer stage 1 to sacralcoccyx, metatarsal area DM ulcer and R hallux DM ulcer Drew: 15 I/Os: (03/30) 1940/3400 (-1460) Edema: slight non-pitting BLE edema GI: Last BM: 03/30/19 RDN Visit (03/31): Patient was sleeping, pt's. family was saying the patient has not eaten any food and is awaiting swallow eval. FNS received consult to advice on tube feeding formula as pt. will be fed with NG tube on 03/31. Estimated Nutritional Needs Based on ideal body weight 84 kg Energy: 1709-9533 kcal/d (25-30 kcal/kg) Protein: 100-109 g/d (1.2-1.3 g/kg) - wounds vs BENJAMIN Fluid: per doctor Nutrition Diagnosis 1. Increased nutrient needs related to increased metabolic demand as evidenced by wounds. 2. Inadequate oral intake related to poor appetite per as evidenced by documented PO of 25% Intervention 1. Recommend Nepro with carbsteady @ 20ml/hr, goal of 50ml/hr, advance 10 ml Q4H. FWF 100ml Q4H (to be determined by doctor taking into consideration other forms of IV hydration). Goal rate will provide 2160 kcal, 97g protein and 870 ml water. PageGated recommendations to Merlyn Cuello. Monitor/Evaluate Goal: Have pt meet at least 75% of estimated needs Monitor: PO intake, Labs, GI function F/U in 2-3 days as high risk 04/02-
--- NOTE | 2019-03-31 12:36 | NUR ---
P.T. NOTES UNABLE TO SEE PATIENT FOR P.T. AT THIS TIME, PATIENT IS ASLEEP, PER SPOUSE WOULD LIKE TO ATTEMPT A LITTLE LATER IN THE AFTERNOON DUE TO PATIENT BEING RESTLESS FOR A FEW DAYS NOW AND FINALLY GETTING SOME REST.
[2019-03-31 12:44] VITALS: BP 139/58
--- NOTE | 2019-03-31 14:23 | NUR ---
SPOKE WITH DR. HOOD REGARDING PT'S PENDING SWALLOW EVAL TEST. PER DR. HOOD, OK TO HOLD OFF ON INSERTING NG TUBE UNTIL SWALLOW EVAL TEST IS DONE.
--- NOTE | 2019-03-31 14:44 | NUR ---
PT WAS SEEN FOR DYSPHAGIA. PT WAS ABLE TOS AFELY SWALLOW PUREE DIET WITH THIN LIQUID. PT REFUSED FOR MS DIET TRIALS. RECOMMENDATION PUREE DIET WITH THIN LIQUID. SMALL BITES AND SIPS ONLY.
--- NOTE | 2019-03-31 16:05 | NUR ---
PHYSICAL THERAPY DAILY NOTES CO-SIGN All documentation done by the Graphic Illustrator for 03/31/19 has been reviewed. I agree with the documentation. Reviewed/Co-Signed by: Stefania Kimble PT Documentation Done by:DINH THOMPSON PTA
[2019-03-31 16:46] VITALS: BP 163/59
--- NOTE | 2019-03-31 17:25 | NUR ---
TELE NEURO ONGOING AT BEDSIDE WITH DR. NICOLE FARMER. PT'S AND DAUGHTERS PRESENT AT BEDSIDE FOR EVALUATION.
--- NOTE | 2019-03-31 18:52 | NUR ---
PT RESTING IN BED. MORE AWAKE, SPEECH CLEAR. RESP EVEN AND UNLABORED ON RA. OCCASIONAL COUGH, RT PROTOCOL. GALLARDO CATHETER DRAINING DARK YELLOW URINE TO GRAVITY. GALLARDO CATHETER CARE PROVIDED PER PROTOCOL. HOB ELEVATED. ON AIR MATTRESS. PT REFUSED TO BE TURNED AND HAVE OPTIFOAM CHANGED AT THIS TIME. SUTURES TO LLE CLEANED AND NEW ISLAND DRESSINGS APPLIED. R HALLUX AND L PLANTAR DISCOLORATION CLEANED AND BETADINE APPLIED ORDERED. BED IN LOW POSITION, CALL LIGHT WITHIN REACH. WILL ENDORSE TO ONCOMING SHIFT.
--- NOTE | 2019-03-31 19:25 | NUR ---
CARE ASSUMED FROM OUTGOING RN. PT RESTING COMFORTABLY IN BED. NO ACUTE DISTRESS NOTED. EVEN AND UNLABORED RESPIRATIONS ON RA. ON TELE#[address]/SA 130 WITH PAC'S,PVC'S. IV PATENT AND INTACT RUNNING FLUIDS PER EMAR. GALLARDO PATENT AND INTACT WITH DARK YELLOW URINE OUTPUT. DRESSING TO LLE CDI. BLE ELEVATED ON PILLOW. BED IN LOWEST POSITION. AIR MATTRESS IN USE. SIDE RAILS UPX2. CALL LIGHT WITHIN REACH. WILL CONTINUE TO MONITOR.
[2019-03-31 19:37] VITALS: BP 157/61
--- NOTE | 2019-03-31 22:23 | NUR ---
PT REFUSED TO BE TURNED AT THIS TIME. PT IN NO ACUTE DISTRESS. CALM AT THIS TIME. BED IN LOWEST POSITION. AIR MATTRESS IN USE. BLE ELEVATED WITH PILLOWS. SIDE RAILS UXP2. CALL LIGHT WITHIN REACH. WILL CONTINUE TO MONITOR.
--- NOTE | 2019-03-31 22:46 | NUR ---
PT HAD A BM. CHAINSTITCH FELLED SEAM OPERATOR CLEANED PT UP AND TURNED PT TO HIS RIGHT SIDE. PT TOLERATED WELL. WILL CONTINUE TO MONITOR
--- NOTE | 2019-04-01 00:26 | NUR ---
PT ASLEEP COMFORTABLY IN BED. NO ACUTE DISTRESS NOTED. EVEN AND UNLABORED RESPIRATIONS ON RA. ON TELE# [address]/SA 118 WITH PACS,PVCS. IV PATENT AND INTACT RUNNING FLUIDS PER EMAR. PER , PT HAS NOT HAVE QUALITY SLEEP IN THE LAST FEW DAYS. WOULD LIKE PT TO REST MUCH POSSIBLE. BED IN LOWEST POSITION. SIDE RAILS UPX2. CALL LIGHT WITHIN REACH. WILL CONTINUE TO MONITOR.
--- NOTE | 2019-04-01 02:50 | NUR ---
REPOSITIONED PT TO SUPINE POSITION. COMFORT MEASURE PROVIDED. WOUNDS TO BILATERAL FEET CLEANED AND BETADINE APPLIED, SOCIAL MEDIA STRATEGIST. DRESSING TO LLE, CDI PT TOLERATED WELL. BED IN LOWEST POSITION. SIDE RAILS UPX2. CALL LIGHT WITHIN REACH. WILL CONTINUE TO MONITOR.
[2019-04-01 05:20] VITALS: BP 148/83
--- NOTE | 2019-04-01 05:44 | NUR ---
WITH ASSIST FROM NURSING ASSISTANTS, PT CLEANED, ZGUARD APPLIED, OPTIFOAM CHANGED, CDI. REPOSITIONED PT TO LEFT SIDE. COMFORT MEASURES PROVIDED. GOWN CHANGED. LINEN CHANGED. GALLARDO EMPTIED. PT TOLERATED WELL. PT CALM AND COOPERATIVE AT THIS TIME. ON TELE# [address]/SA 121 WITH PACS, PVCS. BED IN LOWEST POSITION SIDE RAILS UPX2. CALL LIGHT WITHIN REACH. WILL CONTINUE TO MONITOR.
--- NOTE | 2019-04-01 06:33 | NUR ---
PT SLEPT COMFORTABLY IN INTERVALS THROUGHOUT THE SHIFT. NO ACUTE CHANGES NOTED. EVEN AND UNLABORED RESPIRATIONS ON RA. ON TELE#[address]/SA UP TO 130'S BPM WITH PACS,PVCS. IV PATENT AND INTACT RUNNING FLUIDS PER EMAR. GALLARDO PATENT AND INTACT WITH DARK YELLOW URINE OUTPUT ALL NEEDS TENDED TO AND MET. ALL SCHEDULED MEDICATIONS GIVEN. TURNED AND REPOSITIONED PT. WOUND CARE COMPLETED TO BILATERAL FEET, DIRECTOR EMERGENCY, DRESSING TO LLE, CDI. OPTIFOAM TO COCCYX CHANGED, Z GUARD APPLID, CDI. BLOOD SUGARS CHECKED, 150 AND 147, NO COVERAGE NEEDED PER SLIDING SCALE. BED IN LOWEST POSITION. AIR MATTRESS IN USE. BLE ELEVATED WITH PILLOWS. SIDE RAILS UPX2. CALL LIGHT WITHIN REACH. WILL ENDORSE TO ONCOMING SHIFT.
[2019-04-01 06:45] LABS: CALCIUM 8.7 mg/dL (8.5-10.1); CARBON DIOXIDE 22.7 mmol/L (21-32); CHLORIDE SERUM 114 mmol/L (98-107); CREATININE SERUM 1.5 mg/dL (0.7-1.3); GLUCOSE SERUM 160 mg/dL (74-106); MAGNESIUM 1.5 mg/dL (1.8-2.4); PHOSPHOROUS 2.9 mg/dL (2.5-4.9); SODIUM SERUM 146 mmol/L (136-145)
--- NOTE | 2019-04-01 07:35 | NUR ---
PT RESTING IN BED WITH EYES CLOSED BUT EASILY AROUSABLE. BREATHING EVEN AND UNLABORED ON RA. APPEARS COMFORTABLE, NO PAIN NOTED. ST WITH PAC'S AND PVC'S ON TELE MONITOR. GALLARDO CATHETER DRAINING DARK YELLOW URINE TO GRAVITY. ON AIR MATTRESS. PT ON HIS LEFT SIDE. REPOSITIONED EVERY 2 HOURS AND NEEDED. BLE ELEVATED WITH PILLOWS. DRESSINGS TO LLE C/D/I. IVF INFUSING, NO REDNESS OR SWELLING NOTED. FALL AND ASPIRATION PRECAUTIONS. BED IN LOW POSITION, CALL LIGHT WITHIN REACH. WILL CONTINUE TO MONITOR.
--- NOTE | 2019-04-01 10:09 | NUR ---
PT HAD SMALL SOFT BM, CLEANED AND REPOSITIONED. NEW OPTIFOAM APPLIED. WILL CONTINUE TO MONITOR.
[2019-04-01 10:25] VITALS: BP 129/58
--- NOTE | 2019-04-01 12:39 | NUR ---
PT IN NO ACUTE DISTRESS. EATING LUNCH AT THIS TIME, WITH SLIGHTLY IMPROVED APPETITE. PT ALSO NOW AAOX2 TO NAME AND PLACE. SPEECH CLEAR. WITH OCCASIONAL HALLUCINATIONS. BREATHING EVEN AND UNLABORED ON RA. HOB ELEVATED. ASPIRATION PRECAUTIONS IN PLACE. GALLARDO DRAINING YELLOW URINE TO GRAVITY. AND FAMILY AT BEDSIDE. CALL LIGHT WITHIN REACH. WILL CONTINUE TO MONITOR.
[2019-04-01 13:34] VITALS: BP 129/61
[2019-04-01 17:17] VITALS: BP 137/74
--- NOTE | 2019-04-01 17:28 | NUR ---
PT ENCOURAGED TO INCREASE ORAL INTAKE. GIVEN APPLE JUICE REQUESTED. WILL CONTINUE TO MONITOR.
--- NOTE | 2019-04-01 18:08 | NUR ---
SUTURES TO LLE CLEANED AND NEW ISLAND DRESSINGS ORDERED. BETADINE APPLIED TO L PLANTAR AND R HALLUX ORDERED. PT TOLERATED WELL. WILL CONTINUE TO MONITOR.
--- NOTE | 2019-04-01 18:35 | NUR ---
PT RESTING WITH EYES CLOSED, AROUSABLE. BREATHING EVEN AND UNLABORED ON RA. NO PAIN NOTED. HOB SLIGHTLY ELEVATED. ON AIR MATTRESS. GALLARDO CARE PROVIDED PER PROTOCOL. GALLARDO DRAINING YELLOW URINE TO GRAVITY, 1,000 ML OUTPUT THROUGHOUT SHIFT. FALL PRECAUTIONS IN PLACE. BED IN LOW POSITION, CALL LIGHT WITHIN REACH. WILL ENDORSE TO ONCOMING SHIFT.
[2019-04-01 20:28] VITALS: BP 151/88
--- NOTE | 2019-04-01 20:31 | NUR ---
PT CURRENTLY RESTING IN BED, NO ACUTE DISTRESS. A/O X2, CONFUSED. TELE #12 SHOWING SINUS RHYTHM WITH OCCASIONAL PAC'S, DENIES CHEST PAIN. PULSES PALPABLE IN ALL EXTREMITIES, BLE TRACE EDEMA NOTED. LUNG SOUNDS DIMINISHED BILATERALLY, DENIES SOB. BOWEL SOUNDS ACTIVE, LAST BM 04/01/19. GALLARDO CATHETER IN PLACE, YELLOW URINE NOTED. GENERALIZED WEAKNESS, LLE WEAKNESS NOTED. LLE DRESSING X2, S/P ORIF. DRY SCABS TO BILATERAL FEET, MILLY. OPTIFOAM DRESSING TO COCCYX, CDI. IV PATENT AND INTACT. BED IN LOWEST POSITION, SIDE RAILS UP X2, CALL LIGHT WITHIN REACH. WILL CONTINUE TO MONITOR.
--- NOTE | 2019-04-02 01:25 | NUR ---
PT CURRENTLY RESTING IN BED, NO ACUTE DISTRESS. BED IN LOWEST POSITION, SIDE RAILS UP X2, CALL LIGHT WITHIN REACH. WILL CONTINUE TO MONITOR.
[2019-04-02 05:20] VITALS: BP 142/72
--- NOTE | 2019-04-02 06:00 | NUR ---
PT SLEPT PERIODICALLY THROUGHOUT NIGHT, NO ACUTE DISTRESS. ALL NEEDS MET AND ATTENDED TO. NO SIGNIFICANT CHANGES. IV PATENT AND INTACT. BILATERAL FOOT WOUND PAINTED WITH BETADINE SOLUTION. BED IN LOWEST POSITION, SIDE RAILS UP X2, CALL LIGHT WITHIN REACH. WILL ENDORSE CARE TO ONCOMING NURSE.
[2019-04-02 06:48] LABS: BASOPHIL % 0.2 % (0-2); PLATELET COUNT 204 x10^3mcL (130-400)
[2019-04-02 06:49] LABS: RED CELL DISTRIBUTION WIDTH 16.6 % (11.5-14.5)
[2019-04-02 07:06] LABS: CALCIUM 8.9 mg/dL (8.5-10.1); CARBON DIOXIDE 21.5 mmol/L (21-32); CHLORIDE SERUM 112 mmol/L (98-107); CREATININE SERUM 1.3 mg/dL (0.7-1.3); GLUCOSE SERUM 140 mg/dL (74-106); MAGNESIUM 1.8 mg/dL (1.8-2.4); PHOSPHOROUS 3.1 mg/dL (2.5-4.9); POTASSIUM SERUM 4.5 mmol/L (3.5-5.1); SODIUM SERUM 145 mmol/L (136-145)
--- NOTE | 2019-04-02 07:30 | NUR ---
RECEIVED PT IN NO ACUTE DISTRESS. AWAKE, AOX1. PT REORIENTED TO PLACE AND DATE. BREATHING EVEN AND UNLABORED ON RA. OCCASIONAL COUGH. ASPIRATION PRECAUTIONS. HOB ELEVATED. ON AIR MATTRESS. OPTIFOAM TO COCCYX C/D/I. ISLAND DRESSINGS TO LLE C/D/I. BLE ELEVATED WITH PILLOWS. GALLARDO CATHETER DRAINING YELLOW URINE TO GRAVITY. FALL PRECAUTIONS. BED ALARM ON. SIDE RAILS UP X2. BED IN LOW POSITION, CALL LIGHT WITHIN REACH. WILL CONTINUE TO MONITOR.
[2019-04-02 08:09] VITALS: BP 133/80
--- NOTE | 2019-04-02 11:41 | NUR ---
DR. MCCORD AND MEDICAL TEAM AT BEDSIDE. PT IN NO ACUTE DISTRESS. RESTING IN BED. BREATHING EVEN AND UNLABORED ON RA. IVF INFUSING, NO REDNESS OR SWELLING NOTED. AT BEDSIDE. WILL CONTINUE TO MONITOR.
[2019-04-02 11:55] VITALS: BP 130/76
--- NOTE | 2019-04-02 13:16 | NUR ---
PT RESTING IN BED. ASSISTED WITH LUNCH, PT ATE ABOUT 40% OF HIS FOOD. HOB ELEVATED. FAMILY MEMBERS AT BEDSIDE. IVF INFUSING, NO REDNESS OR SWELLING. CALL LIGHT WITHIN REACH. WILL CONTINUE TO MONITOR.
[2019-04-02 16:41] VITALS: BP 120/58
--- NOTE | 2019-04-02 18:50 | NUR ---
PT IN NO ACUTE DISTRESS. AAOX2. BREATHING EVEN AND UNLABORED ON RA. GALLARDO CATHETER DC'D ORDERED, 850 ML OUTPUT. DRESSINGS TO LLE CHANGED ORDERED. OPTIFOAM TO COCCYX C/D/I. BETADINE APPLIED TO R AND L BIG TOES, MILLY. HOB ELEVATED. FALL PRECAUTIONS. BED IN LOW POSITION, CALL LIGHT WITHIN REACH. WILL ENDORSE TO ONCOMING SHIFT.
--- NOTE | 2019-04-02 19:48 | NUR ---
PT CURRENTLY RESTING IN BED, NO ACUTE DISTRESS. A/O X2, CONFUSED. TELE #12 SHOWING SINUS TACHYCARDIA WITH OCCASIONAL PAC'S, DENIES CHEST PAIN. PULSES PALPABLE IN ALL EXTREMITIES, BLE TRACE EDEMA NOTED. LUNG SOUNDS DIMINISHED BILATERALLY, DENIES SOB. BOWEL SOUNDS ACTIVE, LAST BM 04/02/19. GALLARDO CATHETER D/C BY PREVIOUS NURSE. LLE WEAKNESS, GENERALIZED WEAKNESS. LLE WOUND X2, DRESSINGS CDI. BILATERAL FEET WOUNDS, MILLY. OPTIFOAM DRESSING TO COCCYX, CDI. IV PATENT AND INTACT. BED IN LOWEST POSITION, SIDE RAILS UP X2, CALL LIGHT WITHIN REACH. WILL CONTINUE TO MONITOR.
[2019-04-02 21:28] VITALS: BP 156/70
--- NOTE | 2019-04-03 00:18 | NUR ---
PT CURRENTLY SLEEPING IN BED, NO ACUTE DISTRESS. WILL CONTINUE TO MONITOR.
--- NOTE | 2019-04-03 05:29 | NUR ---
ERRYTHEMA NOTED TO GROIN WHILE CLEANING PATIENT, WOUND PHOTOS TAKEN. WILL ENDORSE TO ONCOMING NURSE.
--- NOTE | 2019-04-03 06:15 | NUR ---
PT SLEPT PERIODICALLY THROUGHOUT NIGHT, NO ACUTE DISTRESS. ALL NEEDS MET AND ATTENDED TO. NO SIGNIFICANT CHANGES. IV PATENT AND INTACT. BED IN LOWEST POSITION, SIDE RAILS UP X2, CALL LIGHT WITHIN REACH. WILL ENDORSE CARE TO ONCOMING NURSE.
[2019-04-03 06:17] VITALS: BP 149/66
[2019-04-03 06:17] LABS: BASOPHIL % 0.4 % (0-2); PLATELET COUNT 196 x10^3mcL (130-400)
[2019-04-03 06:32] LABS: CALCIUM 8.7 mg/dL (8.5-10.1); CHLORIDE SERUM 109 mmol/L (98-107); CREATININE SERUM 1.3 mg/dL (0.7-1.3); GLUCOSE SERUM 134 mg/dL (74-106); POTASSIUM SERUM 4.2 mmol/L (3.5-5.1); SODIUM SERUM 143 mmol/L (136-145)
[2019-04-03 06:39] LABS: RED CELL DISTRIBUTION WIDTH 16.4 % (11.5-14.5)
--- NOTE | 2019-04-03 07:28 | NUR ---
RECEIVED BEDSIDE REPORT, PATIENT A/OX2, SPEECH CLEAR, EYE RESPONSE SPONTANEOUS, EQUAL FABRICATION SUPERVISOR STRENGTH. DENIES HEADACHE/DIZZINESS. TELE 12 READING STACH W/ PAC'S AND PVC'S, DENIES CP, HR 120'S, DENIES FEELING PALPITATIONS. LUNGS DIM TO BASES, BREATHIGN E/U ON RA AT REST. PERIPHERAL PULSES PALPABLE, EDEAM TRACE TO BLE'S AND ELEVATED ON PLILLOW. LLE W/ ISLAND DRESSINGS X2 CDI, SCABS TO LT HELLUX AND RT GREAT TOE ROLL FORMING SUPERVISOR NO ACTIVE DRAINAGE, ERYTHEMA TO GROIN/PERIAREA APPLYING SumanGAURD ROLL FORMING SUPERVISOR. BOWEL SOUNDS ACTIVE, DENIES N/V. IV ACCESS TO RT HAND/WRIST, SITE WNL. CALL LIGHT WITHIN REACH AND DEMOSNTRATE UNDERSTANDING ON HOW TO USE. BOARD UPDATED AND DISCUSSED W/ PATIENT PLAN OF CONTINUED CARE TODAY W/ WOUND CARE, PT, ETC. PATIENT VERBALIZED UNDERSTANDING. WILL CONT TO MONITOR.
[2019-04-03 08:12] VITALS: BP 143/72
--- NOTE | 2019-04-03 09:00 | NUR ---
MECHANICAL SPREADER OPERATOR REPORTS PATIENT SINUS TACHY 140'S UNSUSTAINED AND NOW 120'S. PATIENT LAYING IN BED WITH HOB SLIGHTLY ELEVATED, BREATHING/SNORING AT TIMES BUT REGULAR, AWAKE/ALERT. DENIES FEELING DISCOMFORT OR TROUBLE BREATHING. AM DUE MEDICATIONS GIVEN AND PATIENT CALM AND COOPERATIVE AT THIS TIME, ASP PREC UTILIZED, NO ISSUES SWALLOWING OBSERVED. PATIENT REPOSITIONED. CALL LIGHT WITHIN REACH, WILL CONT TO MONITOR.
--- NOTE | 2019-04-03 10:35 | NUR ---
REPORT GIVEN TO RABIA ANDREWS TO RESUME CARE. AT BEDSIDE, INTRODUCTION MADE. ALL QUESTIONS/CONCERNS ADDRESSED. PATIENT RESTING, NO SIGN OF ACUTE DISTRESS AT THIS TIME.
--- NOTE | 2019-04-03 10:37 | NUR ---
RECEIVED REPORT FROM FOUZIA ANDREWS. PT AWAKE RESTING IN BED. NO ACUTE DISTRESS NOTED. IV INTACT AND PATENT. FAMILY MEMBER AT BEDSIDE. BED IN LOW POSITION. CALL LIGHT WITHIN REACH. WILL CONTINUE TO MONITOR.
--- NOTE | 2019-04-03 11:00 | NUR ---
PHYSICAL THERAPIST WORKING WITH PT.
--- NOTE | 2019-04-03 12:29 | NUR ---
Follow-up Nutrition Assessment: 244T/A MEETA STEPHENS, [place] FU HR Dx: Acute renal failure PMHx: DM, high cholesterol Labs: (04/03) BG 134H, A1C 7.0H Meds: D 50%, humulin, Pepcid, zofran Diet: Cardiac (CCHO), Puree w/ Ensure high protein BID PO Intake: (04/02) breakfast 20%, dinner 40%, lunch 30%, (04/01) breakfast 20%, lunch 25%, Weights: (03/31) 126.1 kg, (04/01) 127.5 kg, (04/02) 128.3 kg Skin: L leg surgical wound, pressure ulcer stage 1 to sacralcoccyx, metatarsal area DM ulcer and R hallux DM ulcer Drew: 15 I/Os: (04/03) 1250/850 (400) Edema: BLE edema GI: Last BM: 04/02/19 RDN Visit (04/03): WALL TAPER HELPER recommended puree diet w/ thin liquids on 03/31. Per patient's , pt. ate half of egg burrito for breakfast that she brought from [facility]. Patient's appetite is slowly coming back per . She also requested to change flavor of Ensure ONS. Pt.'s preference was taken into consideration. Per progress note (04/02), there is marked improvement in his mental status he is alert and oriented/talking normal. Not considering transfer anymore. Estimated Nutritional Needs Based on ideal body weight 84 kg Energy: 2101-2963 kcal/d (25-30 kcal/kg) Protein: 100-109 g/d (1.2-1.3 g/kg) - wounds vs BENJAMIN Fluid: per doctor Nutrition Diagnosis 1. Increased nutrient needs related to increased metabolic demand as evidenced by wounds. (ongoing) 2. Inadequate oral intake related to poor appetite per as evidenced by documented PO of 25% (ongoing) Intervention 1. Recommend continuing Cardiac (CCHO), Puree w/ Ensure high protein BID. 2. Recommend adding Carlos Alberto BID for wounds. Discussed recommendations with Dr. Edilson Adames.
--- NOTE | 2019-04-03 12:29 | NUR ---
1. Recommend continuing Cardiac (CCHO), Puree w/ Ensure high protein BID. 2. Recommend adding Carlos Alberto BID for wounds. Discussed recommendations with Dr. Edilson Nevilleed.
--- NOTE | 2019-04-03 13:37 | NUR ---
APPLIED NEW DRESSING TO LT LEG CDI. BETADINE APPLIED TO METATARSAL AND RT HALLUX.
--- NOTE | 2019-04-03 13:44 | NUR ---
PT LYING IN BED. NO ACUTE DISTRESS NOTED. SON AT BEDSIDE. CALL LIGHT WITHIN REACH. WILL CONTINUE TO MONITOR.
--- NOTE | 2019-04-03 13:45 | NUR ---
PT SITTING UP IN BED RESTING. NO ACUTE DISTRESS NOTED. FAMILY MEMBERS AT BEDSIDE. CALL LIGHT WITHIN REACH. WILL CONTINUE TO MONITOR.
--- NOTE | 2019-04-03 16:03 | NUR ---
PT REMAINS ASLEEP BUT AROUSABLE. CALL LIGHT WITHIN REACH. WILL CONTINUE TO MONITOR.
[2019-04-03 16:44] VITALS: BP 137/81
--- NOTE | 2019-04-03 18:14 | NUR ---
PT AWAKE LYING IN BED. NO ACUTE DISTRESS NOTED. IV INTACT AND PATENT. FAMILY MEMBER AT BEDSIDE. CALL LIGHT WITHIN REACH. WILL BE ENDORSED.
--- NOTE | 2019-04-03 19:05 | NUR ---
REPORT RECEIVED FROM DAY SHIFT RN. PATIENT WAS SEEN AND IS RESTING COMFORTABLY IN BED. A/OX2. CONFUSED. BREATHING EVEN AND UNLABORED ON ROOM AIR. NO SOB OR RESP DISTRESS NOTED. NONPRODUCTIVE COUGH. DENIES CHEST PAIN. TELE#12 ST. NO C/O PAIN. IV TO THE RIGHT WRIST, 22G. PATENT AND INTACT. NO REDNESS OR SWELLING NOTED. INCONTINENT. ON AIR MATTRESS. E ISLAND DRESSING X2, CDI. OPTIFOAM TO COCCYX, CDI. COMFORT AND SAFETY MEASURES IN PLACE. BED IS LOCKED AND IN THE LOWEST POSITION. SIDE RAILS UP X2. CALL LIGHT IS WITHIN REACH. INSTRUCTED TO CALL FOR ASSISTANCE.
--- NOTE | 2019-04-03 20:45 | NUR ---
TELE MONITOR CALLED REPORTING HR WENT UP TO 150. CHECKED ON PATIENT. PATIENT IS LAYING IN BED WATCHING TV. DENIES CHEST PAIN. ASKING ABOUT . CONFUSED. NO DISTRESS NOTED. BREATHING EVEN AND UNLABORED ON ROOM AIR. SAFEYTY MEASURES IN PLACE. CALL LIGHT IS WITHIN REACH. WILL CONTINUE TO MONITOR.
[2019-04-03 20:56] VITALS: BP 135/60
--- NOTE | 2019-04-03 21:30 | NUR ---
IV TO THE RAC, 22G, CAME LOOSE. REMOVED WITH CATHETER INTACT. NEW IV PLACE BY JULIANA ANNE TO THE LAC, 20G. NEW IV TO LAC FLUSHED WELL. PATENT AND INTACT. NO REDNESS OR SWELLING NOTED. DRESSING CDI. PATIENT TOLERATED WELL.
--- NOTE | 2019-04-03 23:34 | NUR ---
PATIENT CLEANED AND CHANGED WITH MCKENNA MATHEW. PATIENT REPOSITIONED WELL. BETADINE APPLIED TO LEFT AND RIGHT TOE. INTERDRY APPLIED TO ABD FOLDS. ERYTHEMA AND REDNESS NOTED. DENIES PAIN. NO DISTRESS NOTED. BREATHING EVEN ON ROOM AIR. IVF INFUSING WELL. SAFETY MEASURES IN PLACE. OPTIFOAM TO COCCYX, CDI. CALL LIGHT IS WITHIN REACH. WILL CONTINUE TO MONITOR.
--- NOTE | 2019-04-04 03:12 | NUR ---
PATIENT IS AWAKE IN BED STATING "I WANT TO GO HOME. I NEED TO LEAVE RIGHT NOW. I CAN'T DO THIS RIGHT NOW. I NEED TO SEE IF MY IS OKAY. I HAVEN'T HEARD FROM HER." PATIENT IS CONFUSED. ORIENTED PATIENT THAT HE IS IN THE HOSPIAL, IT'S 3AM, AND HIS IS PROBABLY AT HOME SLEEPING AT THIS TIME. PATIENT ARGEED TO STAY AND IS COOPERATIVE. DENIES PAIN. DENIES SOB. NONPROD COUGH NOTED. BREATHING EVEN ON ROOM AIR. IVF INFUSING WELL TO LAC. PLACED BLANKET ON PATIENT. SAFETY MEASURES IN PLACE. CALL LIGHT IS WITHIN REACH. WILL CONTINUE TO MONITOR.
[2019-04-04 05:18] VITALS: BP 137/59
--- NOTE | 2019-04-04 05:48 | NUR ---
PATIENT ANGRY DEMANDING TO SPEAK TO HIS . CALLED GISELA TWICE WITH NO ANSWER. WILL TRY TO CALL HER AGAIN LATER. PATIENT IS MORE COOPERATIVE NOW.
--- NOTE | 2019-04-04 06:03 | NUR ---
PATIENT WANTED TO GET OOB TO USE THE RESTROOM. PATIENT ARGREED TO USE THE URINAL. PATIENT COULD NOT URINATE. , GISELA, CALLED BACK AND SPOKE TO THE PATIENT. UPDATED ON STATUS WELL.
--- NOTE | 2019-04-04 06:07 | NUR ---
NOTIFIED DR IRBY THAT PATIENT WAS VTACH FOR A COUPLE OF SECONDS AT 0540. PATIENT NOT SYMPTOMATIC. DENIES CHEST PAIN/PRESSURE. BREATHING EVEN ON ROOM AIR. PATIENT STATES "NO I DON'T HAVE PAIN ANYWHERE". NO NEW ORDERS AT THIS TIME. PATIENT IS NOT AFIB WITH PVCS. DR IRBY AWARE OF THAT WELL. WILL CONTINUE TO MONITOR.
[2019-04-04 06:17] LABS: BASOPHIL % 0.3 % (0-2); PLATELET COUNT 193 x10^3mcL (130-400)
--- NOTE | 2019-04-04 06:31 | NUR ---
PATIENT RESTED IN LONG INTERVALS THROUGHOUT THE NIGHT. NO ACUTE CHANGES NOTED. A/OX2 AND CONFUSED. BREATHING EVEN AND UNLABORED ON ROOM AIR. DENIES CHEST PAIN. TELE MONITOR SHOWING ST, AFIB W/ PVCS, AND A COUPLE OF SECONDS OF VTACH. DR IRBY AWARE. ASYMPTOMATIC. PATIENT WAS ANGRY AT TIMES. IV TO THE LAC INFUSING WELL. PATENT AND INTACT. ISLAND DRESSINGS TO LLE, CDI. ON AIR MATTRESS. INCONTINENT OF URINE. COULD NOT COLLECT URINE FOR UA. PATIENT ATTEMPTED TO URINATE IN URINAL BUT WAS UNSUCCESSFUL. NO C/O PAIN THROUGHOUT THE NIGHT. [place] BILATERALLY. ALL NEEDS AND CONCERNS ADDRESSED. COMFORT AND SAFETY MEASURES IN PLACE. CALL LIGHT IS WITHIN REACH. WILL ENDORSE CARE TO DAY SHIFT RN.
[2019-04-04 06:49] LABS: RED CELL DISTRIBUTION WIDTH 16.5 % (11.5-14.5)
[2019-04-04 07:01] LABS: CALCIUM 8.9 mg/dL (8.5-10.1); CARBON DIOXIDE 21.7 mmol/L (21-32); CHLORIDE SERUM 109 mmol/L (98-107); CREATININE SERUM 1.3 mg/dL (0.7-1.3); GLUCOSE SERUM 118 mg/dL (74-106); MAGNESIUM 1.7 mg/dL (1.8-2.4); PHOSPHOROUS 3.3 mg/dL (2.5-4.9); POTASSIUM SERUM 4.1 mmol/L (3.5-5.1); SODIUM SERUM 144 mmol/L (136-145)
--- NOTE | 2019-04-04 07:30 | NUR ---
RC'D PT RESTING IN BED WITH NO APPARENT SIGNS OF DISTRESS. A/A/O/X2, SPEECH CLEAR. PT CONFUSED AT TIMES. ON TELE, DENIES CHEST PAIN/PRESSURE. PALP PULSES, EDEMA NOTED TO BLE. RESPIRATIONS EQUAL AND UNLABORED. LUNGS DIM IN BASES. ON RA, DENIES SOB. ABDOMEN SOFT AND NONTENDER. ACTIVE BS. DENIES N/V. INCONTINENT. GENERALIZED WEAKNESS. AIR MATTRESS IN PLACE. LLE DRESSING, CDI. ERYTHEMA NOTED TO ABDOMINAL FOLDS. BILAT TOE SCABS, MILLY. PT DENIES PAIN. IV PATENT AND INTACT. BED IN LOW POSITION. CALL LIGHT IN REACH. WILL CONT TO MONITOR
--- NOTE | 2019-04-04 07:30 | NUR ---
SPOKE WITH DR IRBY REGARDING RUN OF VTACH EARLIER THIS AM, DR IRBY TO ORDER EKG. AWAITING NEW ORDERS AT THIS TIME
--- NOTE | 2019-04-04 07:46 | NUR ---
PHYSICAL THERAPY DAILY NOTES CO-SIGN All documentation done by the Drafting Technician for 04/03/19 has been reviewed. I agree with the documentation. Reviewed/Co-Signed by: Stefania Kimble PT Documentation Done by:DINH THOMPSON PTA
--- NOTE | 2019-04-04 08:20 | NUR ---
AM MEDICATIONS GIVEN. PT TOLERATED WELL. RESPIRATIONS EQUAL AND UNLABORED, ON RA, DENIES SOB. PT DENIES PAIN AT THIS ITME. BED IN LOW POSITION. CALL LIGHT IN REACH. WILL CONTINUE TO MONITOR
[2019-04-04 08:48] VITALS: BP 138/50
[2019-04-04 09:52] VITALS: BP 138/50
--- NOTE | 2019-04-04 11:21 | NUR ---
PT RESTING IN BED WITH NO APAPRENT SIGNS OF DISTRESS. RESPIRATIONS EQUAL AND UNLABORED. DENIES SOB/PAIN. BED IN LOW POSITION. CALL LIGHT IN REACH. WILL CONT TO MONITOR
--- NOTE | 2019-04-04 11:41 | NUR ---
WOUND CARE RE-EVALUATION NOTE -LEFT LEG SURGICAL WOUND WITH DRESSING DCI -PRESSURE ULCER STAGE 1 TO SACRALCOCCYX EXTENDED TO LEFT INNER BUTTOCK SKIN DRY AND SCALY, BLANCHABLE REDNESS, OPTIFOAM INPLACE -LEFT 1ST METATARSAL PLANTAR AREA DIABETIC ULCER 3X3CM DEPTH UTD, DRY STABLE BROWN ESCHAR -RIGHT HALLUX AREA DIABETIC ULCER 2X2CM DEPTH UTD, DRY STABLE BLACK ESCHAR
--- NOTE | 2019-04-04 13:00 | NUR ---
RECEIVED PT FROM CAROL ANDREWS. PT IS A/O X2, CONFUSED BUT VERBAL RESPONSIVE, AT BEDSIDE, NO RESPIRATORY DISTRESSS, NO S/S OF PAIN AT THIS MOMENT, IV AT LEFT AC, NO LEAKING, NO INFILTRATION. ALL ADLS ASSIST, ALL NEED MET, CALL LIGHT IN REACH, WILL CONTINUE TO MONITOR.
--- NOTE | 2019-04-04 14:33 | NUR ---
PHYSICAL THERAPY DAILY NOTES CO-SIGN All documentation done by the Sanitary Engineering Teacher for 04/04/19 has been reviewed. I agree with the documentation. Reviewed/Co-Signed by: Stefania Kimble PT Documentation Done by: DINH THOMPSNO PTA
[2019-04-04] MEDS ORDERED: METOPROLOL TART25 M1 PO (15:49)
[2019-04-04] MEDS ORDERED: GLIPIZIDE2.5 M1 PO (15:49)
[2019-04-04] MEDS ORDERED: RELION HUMUL100 U/M2 SQ (15:55)
[2019-04-04 16:56] VITALS: BP 100/61
--- NOTE | 2019-04-04 18:00 | NUR ---
CALLED [facility] TO GIVE REPORT TO SOFÍA. JULIANA.
--- NOTE | 2019-04-04 18:03 | NUR ---
PT IS LYING AT BED, PLAYING PHONE, A/O X2, VERBAL RESPONSIVE, DENY ANY RESPIRATORY DISTRESS, DENY ANY PAIN OR DISCOMFORT. IV AT LEFT AC, NO LEAKING, NO INFILTRATION. WILL CONTINUE TO MONITOR.
--- NOTE | 2019-04-04 19:15 | NUR ---
PT IS A/O x3. CHALKYITSIK. DENIES ANY CHEST PAIN OR PRESSURE. NO TELE. PULSES ARE PRESENT. TRACE EDEMA NOTED ON BLE. ISLAND DRESSING ON LLE IS CLEAN AND INTACT. LUNGS DIMINISHED ON BLL WITH SLIGHT CONGESTION. EQUAL CHEST RISE AND FALL. NO SIGN OF RESP DISTRESS. NON PRODUCTIVE COUGH. BOWEL SOUNDS PRESENT x4. INCONTINENT WITH URINE. ON AN AIR MATTRESS. ERYTHEMA NOTED ON ABD FOLDS. DENIES AN PAIN AT THIS TIME. IV ON LAC INTACT AND PATENT. PT IS AWARE OF TRANSFER TONIGHT. BED IS AT LOWEST SETTING. CALL LIGHT WITHIN REACH. WILL CONTINUE TO MONITOR.
[2019-04-04 20:29] VITALS: BP 123/50
--- NOTE | 2019-04-04 20:55 | NUR ---
TRANSPORT IS HERE TO TRANSPORT TO TO [facility] ROOM 45. PT WAS CLEANED AND DRESSED FOR TRANFER. IV WAS REMOVED, CATH INTACT. PT TOLERATED WELL. PT AT BEDSIDE AT THE TIME OF TRANSFER AND TOOK PT GLASSES, CELL PHONE AND HEARING AIDS. PT TOLERATED TRANSFER TO [facility] WELL. ALL BELONGING WITH PT . PT IN NO DISTRESS AT DISCHARGE. ID BAND REMOVED, NO TELE WAS PRESENT.
== END 2019-04-04 20:55 | DRG 682 ==
LOC: ED 13:07 → DU 15:22 → MU 04-04 17:18
PROVIDERS: Emergency Medicine; Internal Medicine; ADMIT Internal Medicine
DX: N17.0 Acute kidney failure with tubular necrosis (principal); G93.41 Metabolic encephalopathy; N39.0 Urinary tract infection, site not specified; E87.2 Acidosis; E11.22 Type 2 diabetes mellitus with diabetic chronic kidney disease; E87.5 Hyperkalemia; E86.0 Dehydration; E11.65 Type 2 diabetes mellitus with hyperglycemia; I12.9 Hypertensive chronic kidney disease with stage 1 through stage 4 chronic kidney disease, or unspecified chronic kidney disease; R41.0 Disorientation, unspecified; N18.9 Chronic kidney disease, unspecified; D63.8 Anemia in other chronic diseases classified elsewhere; E78.00 Pure hypercholesterolemia, unspecified; Z68.30 Body mass index [BMI] 30.0-30.9, adult; Z79.84 Long term (current) use of oral hypoglycemic drugs
CPT/HCPCS: 36600; 82962; 83880; 92526-GN; 92610-GN; 94150; 97110-GP; 97530-GP; G0378; G0480; J0610; J0696; J1200; J1630; J2060; J2543; J3475; J3490; J7030; J7620; Q0092